=== PATIENT | female | born 1950 | race Two or more races ===

== ENCOUNTER → 2020-09-19 11:46 | Outpatient (CLI) | payer MEDICARE, SELFPAY ==
--- NOTE | ~2020-09-19 | MM_ITS ---
EXAMINATION: MM screening [facility] BI w laura HISTORY: Screening TECHNIQUE: Craniocaudal and mediolateral oblique 3-D tomosynthesis images were obtained and synthetic 2-D images were generated. CAD analysis was submitted and interpreted. COMPARISON: Comparison to multiple prior studies sequentially, with oldest reviewed study dated 05/2015. BREAST PARENCHYMAL COMPOSITION: The breasts are heterogeneously dense, which may obscure small masses . FINDINGS: Stable bilateral breast calcifications. There is no evidence of suspicious mass, calcificat ion, or architectural distortion to suggest malignancy in either breast. There has been no suspicious interval change. IMPRESSION: 1. No mammographic evidence of malignancy. 2. Recommend routine screening mammography in one year. BI-RADS Category 2: Benign finding(s). Reviewed, dictated and finalized at location A. 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
== END ==
PROVIDERS: PCP Internal Medicine; Visit Provider Internal Medicine Medical Oncology
DX: Z12.31 Encounter for screening mammogram for malignant neoplasm of breast (principal)
CPT/HCPCS: 77063; 77067

== ENCOUNTER 2021-01-26 13:57 | Outpatient (CLI) | payer MEDICARE, SELFPAY ==
--- NOTE | ~2021-01-26 | DEXA_ITS ---
Bone Density Report Name: Alicia Matthews Age: 70 Sex: Female Ethnicity: Date of : 1950 Indication: postmenopausal osteoporosis; parental hip fracture; height loss; prior fracture; cancer; Referring Provider: Naveed Moncada Study: Bone densitometry was performed. Exam Date: January 26, 2021 Accession number: [id number] Bone Density: Region BMD T-score Z-score Classification AP Spine (L2, L3, L4) 0.835 -2.2 0.1 Osteopenia Femoral Neck (Left) 0.694 -1.4 0.5 Osteopenia Total Hip (Left) 0.831 -0.9 0.7 Normal Total Hip Bilateral Avg 0.795 -1.2 0.4 Osteopenia Femoral Neck (Right) 0.653 -1.8 0.1 Osteopenia Total Hip (Right) 0.759 -1.5 0.1 Osteopenia World Health Organization criteria for BMD impression classify patients as: Normal (T-score at or above -1.0), Osteopenia (T-score between -1.0 and -2.5), or Osteoporosis (T-score at or below -2.5). 10-year Fracture Risk: FRAX not reported because: Prior hip or vertebral fracture Previous Exams: Region Exam Age BMD T-score BMD Change BMD Change Date g/cm2 vs Baseline vs Previous AP Spine(L2, L3, L4) 01/26/2021 70 0.835 -2.2 -0.059(-6.6%)# 0.036(4.5%)* 12/29/2018 68 0.799 -2.5 -0.095(-10.7%) -0.095(-10.7%) 11/07/2009 59 0.894 -1.7 Total Hip(Left) 01/26/2021 70 0.831 -0.9 -0.040(-4.5%)# 0.001(0.1%) 12/29/2018 68 0.829 -0.9 -0.041(-4.7%)# -0.041(-4.7%)# 11/07/2009 59 0.870 -0.6 Total Hip(Right) 01/26/2021 70 0.759 -1.5 -0.036(-4.5%)# 0.000(0.0%) 12/29/2018 68 0.759 -1.5 -0.036(-4.5%)# -0.036(-4.5%)# 11/07/2009 59 0.795 -1.2 *Denotes significance at 95% confidence level, LSC for AP Spine = 0.022 g/cm2, LSC for Total Hip = 0.027 g/cm2 Clinical Information Provided by Patient: Have had a previous hip or vertebral fracture Has had a low trauma fracture Parent has had a hip fracture Has used the following medications: Vitamin D Has the following medical conditions: Cancer Patient maximum height was 62 Menopause Age: 42 Drinks caffeinated beverages Onset of menses at age 12 Number of children 2 Impression: The patient has low bone mass, based on the Total Spine T-score. The patient has risk factors, including: parental hip fracture, previous fracture. No significant bone loss was observed. Discussion: INCREASED RISK OF FRACTURE DUE TO HISTORY OF FRACTURE. The patient's previous fracture puts the patient at high risk of a future fracture.
== END 2021-01-26 13:58 | disposition home or self-care (01) ==
LOC: ANHIMG 13:59
PROVIDERS: PCP Internal Medicine; Visit Provider Internal Medicine Medical Oncology
DX: M85.89 Other specified disorders of bone density and structure, multiple sites (principal)
CPT/HCPCS: 77080

== ENCOUNTER 2021-11-07 08:28 | Outpatient (CLI) | payer MEDICARE, SELFPAY ==
--- NOTE | ~2021-11-07 | MM_ITS ---
EXAMINATION: MM screening [facility] BI w laura HISTORY: Screening mammogram, history of left breast cancer TECHNIQUE: Craniocaudal and mediolateral oblique 3-D tomosynthesis images were obtained and synthetic 2-D images were generated. CAD analysis was submitted and interpreted. COMPARISON: 09/19/2020, 07/14/2019, 06/11/2018, 04/24/2017, 10/15/2016 BREAST PARENCHYMAL COMPOSITION: The breasts are heterogeneously dense, which may obscure small masses . FINDINGS: Stable lumpectomy changes are noted in the outer left breast. Scattered benign-appearing ca lcifications are present. There is no evidence of suspicious mass, calcification, or architectural di stortion to suggest malignancy in either breast. There has been no suspicious interval change. IMPRESSION: 1. No mammographic evidence of malignancy. 2. Recommend routine screening mammography in one year. BI-RADS Category 2: Benign finding(s). Reviewed, dictated and finalized at location A. 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
== END 2021-11-07 08:29 | disposition home or self-care (01) ==
LOC: ANHIMG 08:35
PROVIDERS: PCP Internal Medicine; Visit Provider Internal Medicine Medical Oncology
DX: Z12.31 Encounter for screening mammogram for malignant neoplasm of breast (principal)
CPT/HCPCS: 77063; 77067

== ENCOUNTER → 2022-02-21 16:28 | Outpatient (CLI) | payer MEDICARE, SELFPAY ==
--- NOTE | ~2022-02-21 | XR_ITS ---
XR lumbar spine 2-3V DATE: 02/21/2022 16:59 INDICATION: Lower back pain TECHNIQUE: AP, lateral, coned lateral lumbosacral standing views COMPARISON: 11/22/2019 lumbar spine FINDINGS: Chronic moderately prominent anterior wedge compression fracture deformity and vertebroplas ty at T12. Diffuse osteopenia. There is moderate to moderately severe degenerative disc disease at L1-2, L2-3, L3-4, mild degenerati ve disc disease at L4-5. Otherwise no fracture or bone destruction is evident. The lumbar pedicles are intact. The sacroiliac joints are intact. IMPRESSION: Diffuse osteopenia Chronic compression fracture deformity and vertebroplasty at T12 Multilevel degenerative disc disease Reviewed, dictated and finalized at location A.
--- NOTE | ~2022-02-21 | XR_ITS ---
XR thoracic spine 3V DATE: 02/21/2022 16:59 INDICATION: Upper back pain TECHNIQUE: AP, lateral and swimmer views COMPARISON: 11/22/2019 thoracic spine FINDINGS: There is diffuse osteopenia. Severe degenerative disc disease at the mid and lower cervical spine. There is vertebroplasty at moderately severe anterior wedge compression fracture deformity of T12 . There is mild degenerative spurring of the thoracic and lumbar spine. No paraspinal soft tissue thickening. IMPRESSION: Diffuse osteopenia Vertebroplasty at T12 compression fracture, stable since 11/22/2019 Degenerative spurring Prominent degenerative disc disease at mid and lower cervical spine Reviewed, dictated and finalized at location A.
== END ==
DX: M54.50 Low back pain, unspecified (principal); M85.88 Other specified disorders of bone density and structure, other site; M48.54XA Collapsed vertebra, not elsewhere classified, thoracic region, initial encounter for fracture; M51.36 Other intervertebral disc degeneration, lumbar region; Z98.1 Arthrodesis status; M50.320 Other cervical disc degeneration, mid-cervical region, unspecified level
CPT/HCPCS: 72072; 72100

== ENCOUNTER → 2022-08-06 11:59 | Outpatient (CLI) | payer MEDICARE, SELFPAY ==
--- NOTE | ~2022-08-06 | XR_ITS ---
XR hip LT min 2V DATE: 08/06/2022 12:45 INDICATION: Left hip pain TECHNIQUE: AP and lateral views COMPARISON: None FINDINGS: No fracture or dislocation, avascular necrosis or bone destruction. Left hip joint space is relatively well preserved. The pubic symphysis and sacral iliac joints are intact. IMPRESSION: No significant abnormality Reviewed, dictated and finalized at location B. IMPRESSION: No significant abnormality
== END ==
PROVIDERS: PCP Family Medicine; Visit Provider Family Medicine
DX: M25.552 Pain in left hip (principal)
CPT/HCPCS: 73502

== ENCOUNTER 2022-12-04 14:45 | Outpatient (CLI) | payer MEDICARE, SELFPAY ==
--- NOTE | ~2022-12-04 | MM_ITS ---
EXAMINATION: MM screening [facility] BI w laura HISTORY: Screening mammogram, history of left breast cancer TECHNIQUE: Craniocaudal and mediolateral oblique 3-D tomosynthesis images were obtained and synthetic 2-D images were generated. CAD analysis was submitted and interpreted. COMPARISON: 11/07/2021, 09/19/2020, 07/06/2019 BREAST PARENCHYMAL COMPOSITION: The breasts are heterogeneously dense, which may obscure small masses . FINDINGS: There are stable lumpectomy changes in the upper outer quadrant of the left breast. Also se en are stable right breast calcifications having undergone previous biopsy. There is stable architecture internship ural distortion No suspicious mass, calcification, or architectural distortion are identified in eith er breast to suggest malignancy. There has been no suspicious interval change. IMPRESSION: 1. No mammographic evidence of malignancy. 2. Recommend routine screening mammography in one year. BI-RADS Category 2: Benign finding(s). Reviewed, dictated and finalized at location A. 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
== END 2022-12-04 14:46 | disposition home or self-care (01) ==
LOC: ANHIMG 14:48
PROVIDERS: PCP Family Medicine; Visit Provider Internal Medicine Medical Oncology
DX: Z12.31 Encounter for screening mammogram for malignant neoplasm of breast (principal)
CPT/HCPCS: 77063; 77067

== ENCOUNTER 2023-07-01 15:35 | Outpatient (CLI) | payer MEDICARE, SELFPAY ==
[2023-07-01 20:47] LABS: Hemoglobin A1C 7.2 % (<5.7)
[2023-07-06 11:36] LABS: Thyroid Peroxidase Antibodies <1 IU/mL (<9)
== END 2023-07-01 15:36 | disposition home or self-care (01) ==
LOC: ANHGOSHLAB 15:38
PROVIDERS: Internal Medicine; PCP Family Medicine; Visit Provider Family Medicine
DX: E11.9 Type 2 diabetes mellitus without complications (principal); E03.9 Hypothyroidism, unspecified
CPT/HCPCS: 36415; 83036; 86376

== ENCOUNTER 2023-12-11 15:54 | Outpatient (CLI) | payer MEDICARE, SELFPAY ==
[2023-12-11 19:39] LABS: Magnesium 1.9 mg/dL (1.6-2.3)
[2023-12-11 19:41] LABS: Free T4 Free Thyroxine 1.47 ng/mL (0.78-2.19); Vitamin D 25 Hydroxy 84.8 ng/mL
== END 2023-12-11 15:55 | disposition home or self-care (01) ==
LOC: ANHGOSHLAB 15:55
PROVIDERS: PCP Family Medicine; Visit Provider Internal Medicine
DX: E03.9 Hypothyroidism, unspecified (principal); E11.22 Type 2 diabetes mellitus with diabetic chronic kidney disease; I12.9 Hypertensive chronic kidney disease with stage 1 through stage 4 chronic kidney disease, or unspecified chronic kidney disease; E53.8 Deficiency of other specified B group vitamins; Z98.890 Other specified postprocedural states; Z79.899 Other long term (current) drug therapy
CPT/HCPCS: 36415; 82306; 82607; 83036; 83735; 84439; 84443

== ENCOUNTER 2024-03-02 13:26 | Outpatient (CLI) | payer MEDICARE, SELFPAY ==
--- NOTE | ~2024-03-02 | MM_ITS ---
EXAMINATION: MM screening [facility] BI w laura HISTORY: Screening TECHNIQUE: Craniocaudal and mediolateral oblique 3-D tomosynthesis images were obtained and synthetic 2-D images were generated. CAD analysis was submitted and interpreted. COMPARISON: Comparison to multiple prior studies sequentially, with oldest reviewed study dated 01/2020. BREAST PARENCHYMAL COMPOSITION: Not dense: There are scattered areas of fibroglandular density. FINDINGS: The left breast is stable without evidence for malignancy. There are multiple clusters of i ndeterminate calcifications in the left breast. There are tissue markers adjacent to 2 of the cluster s one located centrally posterior to the nipple and the other in the upper outer quadrant. Reportedly there have been 2 prior benign biopsies. There is a cluster of indeterminate calcifications in the u pper outer quadrant of the right breast. IMPRESSION: 1. Multiple clusters of indeterminate right breast calcifications. 2. Magnification views are recommended. BI-RADS Category 0: Incomplete: Needs additional imaging evaluation. Reviewed, dictated and finalized at location B.
--- NOTE | ~2024-03-02 | DEXA_ITS ---
Bone Density Report Name: GEN PRUITT Age: 73 Sex: Female Ethnicity: Date of : 1950 Indication: osteopenia; parental hip fracture; height loss; prior fracture; postmenopausal Referring Provider: Coral, Naveed Moody Study: Bone densitometry was performed. Exam Date: March 02, 2024 Accession number: [id number] Bone Density: Region BMD T-score Z-score Classification AP Spine (L1-L4) 0.865 -1.7 0.7 Osteopenia Femoral Neck (Left) 0.699 -1.4 0.7 Osteopenia Total Hip (Left) 0.846 -0.8 1.0 Normal Femoral Neck (Right) 0.656 -1.7 0.3 Osteopenia Total Hip (Right) 0.768 -1.4 0.3 Osteopenia Total Hip Mean 0.807 -1.1 0.7 Osteopenia World Health Organization criteria for BMD impression classify patients as: Normal (T-score at or above -1.0), Osteopenia (T-score between -1.0 and -2.5), or Osteoporosis (T-score at or below -2.5). 10-year Fracture Risk: FRAX not reported because: Prior hip or vertebral fracture Previous Exams: Region Exam Age BMD T-score BMD Change BMD Change Date g/cm2 vs Baseline vs Previous AP Spine(L1-L4) 03/02/2024 73 0.865 -1.7 0.043* 0.043* 06/22/2008 58 0.822 -2.0 Total Hip(Left) 03/02/2024 73 0.846 -0.8 -0.027 -0.027 06/22/2008 58 0.873 -0.6 Total Hip(Right) 03/02/2024 73 0.768 -1.4 -0.039* -0.039* 06/22/2008 58 0.807 -1.1 *Denotes significance at 95% confidence level, LSC for AP Spine = 0.022 g/cm2, LSC for Total Hip = 0.027 g/cm2 Clinical Information Provided by Patient: Have had a previous hip or vertebral fracture Has had a low trauma fracture Parent has had a hip fracture Has used the following medications: Vitamin D Patient maximum height was 62.5 Menopause Age: 58 No regular weight bearing exercise Onset of menses at age 12 Number of children 2 Impression: The patient has low bone mass, based on the Total Spine T-score. The patient has risk factors, including: parental hip fracture, previous fracture. The BMD for the Total Hip(Right) decreased, changing by -0.039 since the last DXA exam. Discussion: INCREASED RISK OF FRACTURE DUE TO HISTORY OF FRACTURE. The patient's previous fracture puts the patient at high risk of a future fracture. In untreated patients, the risk of osteoporotic fracture increases approximately two-fold for each 1.0 SD decrease in T-score. Low bone density is not the only risk factor for fracture; also consider fac
== END 2024-03-02 13:27 ==
LOC: MICIMG 13:27
PROVIDERS: PCP Internal Medicine Medical Oncology; Visit Provider Internal Medicine Medical Oncology
DX: Z12.31 Encounter for screening mammogram for malignant neoplasm of breast (principal); M81.0 Age-related osteoporosis without current pathological fracture; M85.89 Other specified disorders of bone density and structure, multiple sites; C50.412 Malignant neoplasm of upper-outer quadrant of left female breast; R92.8 Other abnormal and inconclusive findings on diagnostic imaging of breast; Z17.0 Estrogen receptor positive status [ER+]
CPT/HCPCS: 77063; 77067; 77080

== ENCOUNTER 2024-03-12 15:56 | Outpatient (CLI) | payer MEDICARE, SELFPAY ==
--- NOTE | ~2024-03-12 | XR_ITS ---
EXAMINATION: XR knee RT min 4V, XR knee LT min 4V DATE: 03/12/2024 16:36 INDICATION: Bilateral knee pain, left greater than right TECHNIQUE: 1. Weight bearing anteroposterior and Veliz, sunrise, and flexed lateral views of the left knee w ere obtained 2. Weight bearing anteroposterior and Veliz, sunrise, and flexed lateral views of the right knee were obtained COMPARISON: None. FINDINGS: There is mild bilateral genu valgus. No fracture. There is mild joint space narrowing and small sherwin nal osteophytes in the medial and patellofemoral compartments of both knees. No joint effusion at eit her knee. Soft tissues are unremarkable. IMPRESSION: 1. Mild medial and patellofemoral osteoarthritis of both knees. Reviewed, dictated and finalized at location A. IMPRESSION: 1. Mild medial and patellofemoral osteoarthritis of both knees.
== END 2024-03-12 15:57 ==
PROVIDERS: PCP Family Medicine; Visit Provider Family Medicine
DX: M17.0 Bilateral primary osteoarthritis of knee (principal)
CPT/HCPCS: 73564

== ENCOUNTER 2024-04-26 15:30 | Outpatient (RCR) | payer MEDICARE, SELFPAY ==
--- NOTE | 2024-04-08 15:04 | PTOPEVAL1 ---
Assessment and note entered by Pete Lynn Evaluation Information Assessment Status Evaluation Diagnosis right knee pain, left knee pain Onset 01/09/24 Subjective Information Pt. reports that her knee pain began a few months ago. She notices pain mostly with going up and down steps. she states that squatting is not very painful. She describes pain in the front of both the right and left knee joint. She states that she has little pain with walking over a level surface. Pt. reports she is mostly sedentary, so pain is mild at rest. She reports that she avoids vigorous activities due to her developed pain. She has noticed that she has began to look for stable objects to hold onto when she is walking. She denies any recent falls, just feels she is more unsteady. She reports she does have some back pain also associated with long periods of standing. she has hx of previous kyphoplasty. She reports that her goal is to be able to become more steady and decrease her knee pain. Reported Pain Level Pain Score 0,6: Self Report Assessment PT Clinical Summary Pt. is a 73 year old female who enters the clinic with diagnosis of bilateral knee pain. Pt. presents with deficits regarding l.e. strength, back pain, impaired postural awareness, impaired gait and impaired balance. Continued skilled PT is indicated in order to improve these areas to allow the pt. to be able to participate in IADL's with improve comfort and efficiency. Plan of Care Interventions Gait Training,Hot Pack/Cold Pack,Manual Therapy, Neuro Re-education,Patient/Caregiver Educati, Therapeutic Activities,Therapeutic Exercise PT Services Indicated Yes Treatment Frequency and 2x/week x 10 visits Duration These treatments will address the objective and functional deficits as defined above. The patient will be advanced safely and appropriately in order for the patient to progress towards his/her prior level of function. Additional exercises will be introduced and as well as a comprehensive home exercise program upon discharge, if needed, ?to ensure carryover of functional gains achieved in the clinic. This treatment plan has been reviewed and agreement upon by the patient.
--- NOTE | 2024-04-08 15:08 | OPREHPOC ---
Outpatient Therapy Plan of Care This is a Multidisciplinary Plan of Care that may contain components documented by all disciplines (PT, OT, and ST.) PT Problem 1 PT Problem #1 Knowledge Deficit PT Goal 1 Goal Pt. will be independent with a HEP addressing trunk mobility, core strength and flexibility. Target Visit 2 PT Problem 2 PT Problem #2 Impaired Balance PT Goal 1 Goal Pt. will improve her tinetti score to 24 or greater indicating low to no fall risk. Target Visit 10 PT Problem 3 PT Problem #3 Impaired Functional Mobil PT Goal 1 Goal Pt. will be able to participate in 30 minutes of standing activities with back pain at 3/10 at worst Pt. will demonstrate ability to safely lift small object from floor to waist for 10 reps without pain increase. Pt. will ascend and descend 10 steps without noted knee pain. Target Visit 10 Progress Met PT Problem 4 PT Problem #4 Impaired Strength PT Goal 1 Goal Pt. will present with 4+/5 gross l.e. strength Target Visit 10
--- NOTE | 2024-05-13 12:00 | PCPTNOTE ---
Mrs. Matthews attended a total of 4 treatment sessions from 04/08/24 to 04/26/24. She contacted the clinic on 05/07/24 stating she had a lot going on right now and she needed to cancel all remaining appointments. She will be discharged from our care. Refer to the last daily note for discharge status. Pete Lynn, MPT
== END 2024-05-13 13:43 | disposition home or self-care (01) ==
LOC: ANHGOSHPT 15:30
PROVIDERS: PCP Family Medicine; Visit Provider Family Medicine
DX: M25.561 Pain in right knee (principal); M25.562 Pain in left knee
CPT/HCPCS: 97014; 97110; 97140; 97161; 97530; G0283

== ENCOUNTER 2024-06-02 09:49 | Outpatient (CLI) | payer MEDICARE, SELFPAY ==
--- NOTE | ~2024-06-02 | MM_ITS ---
EXAMINATION: MM diagnostic mammo unilat RT HISTORY: Follow-up right breast calcifications TECHNIQUE: Additional 3-D tomosynthesis images of the right breast were performed and synthetic 2-D i mages were generated. CAD analysis was submitted and interpreted. COMPARISON: Comparison to multiple prior studies sequentially, with oldest reviewed study dated 07/14. BREAST PARENCHYMAL COMPOSITION: Dense: The breasts are heterogeneously dense, which may obscure small masses FINDINGS: There is a tissue marker in the subareolar location of the right breast with adjacent clust ered pleomorphic calcifications which are not significantly changed dating back to 11/07/2021. There are 2 additional clusters of indeterminate calcifications in the upper outer quadrant which have deve loped since prior examinations. There are no suspicious masses or architectural distortion. IMPRESSION: 1. Developing clusters of indeterminate right breast calcifications in the upper outer quadrant. 2. Stereotactic biopsies of each of these clusters recommended. BI-RADS category 4, suspicious findings. Reviewed, dictated and finalized at location B. IMPRESSION: 1. Developing clusters of indeterminate right breast calcifications in the uppe r outer quadrant. 2. Stereotactic biopsies of each of these clusters recommended. BI-RADS category 4, suspicious findings.
== END 2024-06-02 09:50 ==
PROVIDERS: PCP Family Medicine; Visit Provider Internal Medicine Medical Oncology
DX: R92.8 Other abnormal and inconclusive findings on diagnostic imaging of breast (principal); Z85.3 Personal history of malignant neoplasm of breast
CPT/HCPCS: 77065

== ENCOUNTER 2024-06-16 10:47 | Outpatient (CLI) | payer MEDICARE, SELFPAY ==
[2024-06-16 13:24] LABS: Alanine Aminotransferase 16 U/L (6-35); Alkaline Phosphatase 77 U/L (38-126); Anion Gap 10 mmol/L (4-12); Aspartate Amino Transferase 30 U/L (14-36); Bilirubin,Total 0.3 mg/dL (0.2-1.3); Blood Urea Nitrogen 16 mg/dL (7-17); Calcium 9.6 mg/dL (8.4-10.2); Carbon Dioxide 24 mmol/L (22-30); Chloride 100 mmol/L (98-107); Cholesterol 208 mg/dL (0-200); Estimated Glomerular Filt Rate 54; Glucose 124 mg/dL (65-110); HDL Direct 46 mg/dL; Potassium 4.6 mmol/L (3.4-5.0); Sodium 134 mmol/L (137-145); Triglycerides 92 mg/dL (<150)
[2024-06-16 13:29] LABS: Parathyroid Intact 34.8 pg/mL (7.5-53.5)
[2024-06-16 13:35] LABS: LDL Cholesterol Direct 132 mg/dL
[2024-06-16 13:55] LABS: Creatinine Urine 26.6 mg/dL
[2024-06-16 14:03] LABS: MALB Creatinine Ratio < 22.6 mg/g (0-30); Microalbumin Urine Random < 6.0 mg/L (0-16.7)
[2024-06-16 14:22] LABS: Free T4 Free Thyroxine 1.84 ng/mL (0.78-2.19)
== END 2024-06-16 10:48 | disposition home or self-care (01) ==
PROVIDERS: PCP Family Medicine; Visit Provider Internal Medicine
DX: E03.9 Hypothyroidism, unspecified (principal); E11.22 Type 2 diabetes mellitus with diabetic chronic kidney disease; I12.9 Hypertensive chronic kidney disease with stage 1 through stage 4 chronic kidney disease, or unspecified chronic kidney disease; N18.9 Chronic kidney disease, unspecified; E11.3213 Type 2 diabetes mellitus with mild nonproliferative diabetic retinopathy with macular edema, bilateral; M85.80 Other specified disorders of bone density and structure, unspecified site; Z79.4 Long term (current) use of insulin
CPT/HCPCS: 36415; 80053; 80061; 82043; 82306; 82607; 83970; 84439; 84443

== ENCOUNTER 2024-07-01 09:01 | Outpatient (CLI) | payer MEDICARE, SELFPAY ==
--- NOTE | ~2024-07-01 | MM_ITS ---
MM stereotactic bx RT, MM post biopsy invasive RT, MM stereotactic specimen RT, MM stereotactic speci men RT, MM stereotactic bx RT add EXAMINATION: MM stereotactic bx RT, MM post biopsy invasive RT, MM stereotactic specimen RT, MM stere otactic specimen RT, MM stereotactic bx RT add DATE: Candido Kumar M.D. INDICATION: Multiple areas of indeterminate calcifications in the right breast. Stereotactic core bi opsy is requested evaluate for malignancy.] TECHNIQUE AND FINDINGS: The risks and potential benefits of the procedure were discussed with the patient and written informe d consent was obtained. The patient was placed in the prone position clustered at the table with the right breast in compression, and the area of interest was localized and targeted utilizing digital i maging with stereotaxis. 2 separate areas of indeterminate calcifications in the upper outer quadrant of the right breast, one located more anterior in the middle depth and the second located posteriorl y in the posterior third of the breasts. After sterile preparation of the skin, 1% lidocaine was utilized for local anesthesia at the skin pun cture site and 1% lidocaine with epinephrine was utilized for deeper local anesthesia/is about the bi opsy site. A 9G FANCRU vacuum assisted biopsy needle was advanced to the level of the calcification o f interest from a superior approach utilizing stereotactic guidance and a total of 6 tissue core biop sies from each cluster of calcifications were obtained. A specimen radiograph demonstrates that the calcifications of interest are included within the tissue cores. A tissue marker clip was then placed at the biopsy site. The needle was removed and hemosta sis was achieved. The patient tolerated the procedure well and there is no evidence of significant i mmediate complication. The patient was given verbal as well as written postprocedural instructions p rior to discharge from the department. Tissue cores were submitted to surgical pathology for histolo gic analysis. A 2-view right unilateral digital mammogram was obtained post procedure and this demonstrates that th e tissue marker clip is in expected position.] IMPRESSION: 1. Successful stereotactic biopsy of calcifications in the upper outer quadrant of the right breast, followed by tissue marker clip placement. 2 separate indeterminate clusters of calcifications in the upper outer quadrant of the right breast were sampled. 2 separate tissue markers were placed. Please refer to pathology report for histologic analysis. Reviewed, dictated and finalized at location B. IMPRESSION: 1. Successful stereotactic biopsy of calcifications in the upper outer quadran t of the right breast, followed by tissue marker clip placement. 2 separate ind eterminate clusters of calcifications in the upper outer quadrant of the right breast were sampled. 2 separate tissue markers were placed. Please refer to pat hology report for histologic analysis. IMPRESSION: 1. Successful stereotactic biopsy of calcifications in the upper outer quadran t of the right breast, followed by tissue marker clip placement. 2 separate ind eterminate clusters of calcifications in the upper outer quadrant of the right breast were sampled. 2 separate tissue markers were placed. Please refer to pat hology report for histologic analysis. IMPRESSION: 1. Successful stereotactic biopsy of calcifications in the upper outer quadran t of the right breast, followed by tissue marker clip placement. 2 separate ind eterminate clusters of calcifications in the upper outer quadrant of the right breast were sampled. 2 separate tissue markers were placed. Please refer to pat hology report for histologic terra
== END 2024-07-01 09:02 | disposition home or self-care (01) ==
PROVIDERS: PCP Family Medicine; Visit Provider Surgery
DX: R92.1 Mammographic calcification found on diagnostic imaging of breast (principal); R92.8 Other abnormal and inconclusive findings on diagnostic imaging of breast; Z98.890 Other specified postprocedural states
CPT/HCPCS: 19081; 19082; 88305; A4648

== ENCOUNTER 2024-12-03 13:13 | Outpatient (CLI) | payer MEDICARE, SELFPAY ==
[2024-12-03 18:06] LABS: Alanine Aminotransferase 21 U/L (6-35); Albumin Level 3.8 g/dL (3.5-5.1); Alkaline Phosphatase 89 U/L (38-126); Anion Gap 9 mmol/L (4-12); Aspartate Amino Transferase 36 U/L (14-36); Bilirubin,Total 0.5 mg/dL (0.2-1.3); Blood Urea Nitrogen 12 mg/dL (7-17); Calcium 9.6 mg/dL (8.4-10.2); Carbon Dioxide 22 mmol/L (22-30); Chloride 102 mmol/L (98-107); Cholesterol 196 mg/dL (0-200); Estimated Glomerular Filt Rate 57; Glucose 129 mg/dL (65-110); HDL Direct 44 mg/dL; Potassium 4.5 mmol/L (3.4-5.0); Sodium 133 mmol/L (137-145); Triglycerides 94 mg/dL (<150)
[2024-12-03 18:16] LABS: LDL Cholesterol Direct 121 mg/dL
[2024-12-03 18:55] LABS: Glucose 124 mg/dL (65-110)
[2024-12-07 13:54] LABS: Insulin Level Total 9.1 uIU/mL
== END 2024-12-03 13:14 | disposition home or self-care (01) ==
PROVIDERS: PCP Family Medicine; Visit Provider Internal Medicine
DX: E11.3213 Type 2 diabetes mellitus with mild nonproliferative diabetic retinopathy with macular edema, bilateral (principal); M85.80 Other specified disorders of bone density and structure, unspecified site; E03.9 Hypothyroidism, unspecified; I12.9 Hypertensive chronic kidney disease with stage 1 through stage 4 chronic kidney disease, or unspecified chronic kidney disease; E11.22 Type 2 diabetes mellitus with diabetic chronic kidney disease; N18.9 Chronic kidney disease, unspecified; E53.8 Deficiency of other specified B group vitamins; Z79.4 Long term (current) use of insulin
CPT/HCPCS: 36415; 80053; 80061; 82607; 82947; 83525

== ENCOUNTER 2025-01-18 14:02 | Emergency (ER) | payer OTHER, MEDICARE, SELFPAY ==
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
[2025-01-18 14:05] VITALS: BP 163/71; PULSE 60; RESP 16; TEMP 36.3; O2SAT 100
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
[2025-01-18 14:52] LABS: Basophils Absolute Auto 0.1 K/mm3 (0.0-0.1); Basophils Percent Auto 0.6 % (0.2-1.2); Eosinophils Absolute Auto 0.2 K/mm3 (0-0.3); Eosinophils Percent Auto 2.7 % (0-4.4); Hematocrit 40.2 % (37.0-47.0); Hemoglobin 13.1 g/dL (12.0-15.0); Immature Granulocyte Absolute 0.03 K/mm3 (0.00-0.031); Immature Granulocyte Percent A 0.4 % (0-0.5); Lymphocytes Absolute Auto 1.99 K/mm3 (0.9-3.2); Lymphocytes Percent Auto 23.2 % (18.3-44.2); Mean Corpuscular HGB Conc 32.6 g/dl (32-36); Mean Corpuscular Hemoglobin 28.7 pg (26-34); Mean Platelet Volume 10.6 fl (7.4-10.4); Monocytes Absolute Auto 0.7 K/mm3 (0.1-0.6); Monocytes Percent Auto 7.7 % (2.6-8.5); Neutrophils Absolute Auto 5.6 K/mm3 (1.3-6.7); Neutrophils Percent Auto 65.4 % (45.5-73.1); Platelet Count Result 300 k/mm3 (150-375); Red Blood Count 4.57 M/mm3 (4.2-5.4); Red Cell Distribution Width 13.6 % (11.5-14.5); White Blood Count 8.6 K/mm3 (4.5-10.0)
[2025-01-18 15:06] LABS: Alanine Aminotransferase 23 U/L (6-35); Albumin Level 4.5 g/dL (3.5-5.1); Alkaline Phosphatase 88 U/L (38-126); Anion Gap 12 mmol/L (4-12); Aspartate Amino Transferase 29 U/L (14-36); Bilirubin,Total 0.6 mg/dL (0.2-1.3); Blood Urea Nitrogen 16 mg/dL (7-17); Calcium 9.8 mg/dL (8.4-10.2); Carbon Dioxide 23 mmol/L (22-30); Chloride 101 mmol/L (98-107); Estimated Glomerular Filt Rate > 60; Glucose 138 mg/dL (65-110); Potassium 4.7 mmol/L (3.4-5.0); Sodium 136 mmol/L (137-145)
--- OUTSIDE RECORDS SUMMARY | 2025-01-18 16:27 | XMS_ITS | Continuity of Care Document ---
Author Organization [facility] Address [address] [place] [address] Phone Care Team Providers Care Kennel Manager Dog Track Name Role Phone Kimberly Mosher Unavailable Unavailable Procedures Procedure Date Eye Exam & Treatment Refraction Eye Exam & Treatment Refraction Eye Exam & Treatment Advance Directives Directive Yes / No Effective Date File Name No Information Encounters Encounter Description Practice Location Reason(s) For Visit Diagnoses Date Provider Providers Copied on Encounter [facility], [address] [place] [address] [address], [place], [place], [id number], tel:[phone] [facility] No Information Sep-1 5-200 9 Vidhi Rivas [address] , [address], [place], [place], [facility], . tel:[phone] [facility], [address] [place] [address] [address], [place], [place], [id number], [place] tel:[phone] [facility] No Information Sep-0 2-200 8 Vidhi Rivas [address] , [address], [place], [place], [facility], . tel:[phone] [facility], [address] [place] [address] [address], [place], [place], [id number], tel:[phone] [facility] No Information 8-200 7 Vidhi Ernstn. [address] , [address], [place], [address], [place]. tel:[phone] Family History Family Member Type Diagnosis Age At Onset No Information Payers Payer name Insurance type Covered libertarian ID Authoriza tion(s) No Information Social History Type Description Quantity Date Captured Comments Sex Female Smoking Status No Information Chief Complaint And Reason For Visit No Information Reason For Referral Reason For Referral No Information History Of Present Illness Encounter Date Complaint History Of Prese nt Illness No Information Functional Status Date Functional Assessmen t No Information Instructions Date Instruction Additional Infor mation No Information Assessments Type Assessment Date No Information Patient Care Teams Name Effective Dates (start - stop) Status Members No Information
--- OUTSIDE RECORDS SUMMARY | 2025-01-18 16:27 | XMS_ITS | Clinical Summary ---
Author Organization [facility] Address [address] [place] [address] Care Team Providers Care Sales Account Coordinator Name Role Phone Unavailable Primary Care Provider Unavailabl e Social History Tobacco Use Types Packs/Day Years Used Date Smoking Tobacco: Never Assessed Comments Unknown Sex and Gender Information Value Date Recorded Sex Assigned at Not on file Legal Sex Female 7:32 AM CDT Gender Identity Not on file Sexual Orientation Not on file Plan of Treatment Health Maintenance Due Date Last Done Comments Colorectal Cancer Screening Colonoscopy (10 Years) 1949 Hepatitis C 1967 DTaP, Tdap and Td Vaccines ( 1 - Tdap) 1968 Zoster Vaccines (1 of 2) 1999 Dexa Scan (General) 2014 Pneumococcal Vaccine: 65+ Ye ars (1 of 1 - PCV) 2014 RSV Immunization or 60+ Years (1 - 1-dose 75+ series) 2024 COVID-19 Vaccine ( - 2023-2 5 season) 2024 Influenza Adult (#1) 2024 Meningococcal B Vaccine Aged Out No l onger eligible based on patient's age to complete this topic Meningococcal Vaccine Aged Out No ami sanket eligible based on patient's age to complete this topic RSV Immunizations Under 20 Months Aged Out No longer eligible based on patient's age to complete this topic
--- OUTSIDE RECORDS SUMMARY | 2025-01-18 16:27 | XMS_ITS | Clinical Summary ---
Author Organization [facility] [address] Address [address] [place] [address] Care Team Providers Care Door Opener Name Role Phone Phill Duran MD Primary Care Provider Allergies Active Allergy Reactions Criticality Noted Date Comments Avocado Other (See Comments) High 10/29/2019 Scratchy throat Robledo Other (See Comments) High 10/29/2019 Scratchy itchy throat Egg Other (See Comments) High 10/29/2019 Scratchy throat Ghveryega-P-Aanebrk-Se pooja-Brom Other (See Comments) 11/04/2019 Allergic to pomegranate. Causes itchy scratchy throat Meperidine Other (See Comments) Low 06/28/2019 nausea Medications Ascorbic Acid (ACEROLA C-500) 500 mg Wafer 11/21/2017Vitam in c Powder (gram)POdailyCu rrent Medication 8 Active atorvastatin (LIPITOR) 20 mg tablet Take 20 mg by mouth daily with supper. 8 Active atorvastatin (LIPITOR) 20 mg tablet 9 Active blood sugar diagnostic (ONETOUCH ULTRA BLUE TEST STRIP) Strip TEST D UTD 8 Active cholecalciferol, vitamin D3, 1,000 unit Take 2,000 Units by mouth daily at bedtime. 8 Active furosemide (LASIX) 20 mg tablet Take 20 mg by mouth daily. 8 Active glimepiride (AMARYL) 2 mg tablet Take 2 mg by mouth 2 times daily with meals. 8 Active latanoprost (XALATAN) 0.005 % solution Administer 1 Drop in both eyes daily at bedtime. 9 Active levothyroxine 75 mcg tablet Take 75 mcg by mouth daily. 8 Active metFORMIN (GLUCOPHAGE) 500 mg tablet Take 1,000 mg by mouth 2 times daily with meals. 8 Active Sea-Murray 500-1,000 mg Capsule Take 1 Capsule by mouth late in the day. 8 Active potassium chloride (KLOR-CON) 10 mEq Extended Release tablet Take 10 mEq by mouth daily. 8 Active quinapril (ACCUPRIL) 5 mg tablet Take 10 mg by mouth late in the day. 8 Active SITagliptin (JANUVIA) 100 mg Tablet Take 100 mg by mouth daily. 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 Max Daily Amount: 4 Tablets 30 Tablet 11/04/2019 3:46 PM WORSHIP LEADER 9 Active Active Problems Problem Noted Date Diagnosed Date Closed wedge compression fracture of T11 vertebr a 10/29/2019 Immunizations Immunization Administration Dates Next Due Influenza Seasonal Unspecified Formulation IM Family History Medical History Relation Name Comments Heart Disease Brother Other Father accident No Known Problems Mother Diabetes Sister Hypertension Sister Relation Name Status Comments Brother Father Mother Sister Social History Tobacco Use Types Packs/Day Years Used Date Smoking Tobacco: Former Cigarettes Q uit: 2011 Smokeless Tobacco: Never Alcohol Use Standard Drinks/Week Comments Never 0 (1 standard drink = 0.6 oz pur e alcohol) Comments No Sex and Gender Information Value Date Recorded Sex Assigned at Not on file Legal Sex Female 4:05 AM WORSHIP LEADER Gender Identity Not on file Sexual Orientation Not on file Last Filed Vital Signs Vital Sign Reading Time Taken Comments Blood Pressure 178/72 11/04/2019 3:48 PM WORSHIP LEADER Pulse 58 11/04/2019 3:48 PM WORSHIP LEADER Temperature 36.4 C (97.5 F) 11/04/2019 3:48 PM WORSHIP LEADER Respiratory Rate 12 11/04/2019 3:48 PM WORSHIP LEADER Oxygen Saturation 95% 11/04/2019 3:48 PM WORSHIP LEADER Inhaled Oxygen Concentration - - Weight 66.2 kg (146 lb) 11/04/2019 12:14 PM WORSHIP LEADER Height 150.5 cm (4' 11.25 ) 11/04/2019 12:14 PM WORSHIP LEADER Body Mass Index 29.24 11/04/2019 12:14 PM WORSHIP LEADER Plan of Treatment Health Maintenance Due Date Last Done Comments DTAP/TDAP/TD VACCINES (1 - Tdap) 1968 COLORECTAL SCREENING 1994 Colorectal Cancer Screening 1994 FIT-DNA Q 3 years 1994 FIT/FOBT Q 1 year 1994 Flex Sig/CT Colonography Q 5 years 1994 PNEUMOCOCCAL VACCINE 50+ YEARS (1 of 1 - PCV) 06/04/19 99 ZOSTER VACCINE (1 of 2) 1999 OSTEOPOROSIS SCREENING 2014 RSV VACCINE (60+ or ) (1 - 1-dose 75+ series) 2024 INFLUENZA VACCINE (#1) 2024 08/29/2019 Medical Devices Implanted Type Area Ten Pin [place] Manager Device Identifier Shelf Expiration Date Model / Serial / Lot Mix Kyphon Cx01b - [id number] Implanted:Qty: 1 on 11/04/2019 by Tor Peterson MD at [facility] N/A: Back [employer] - SPINAL fka KYPHON 03/16/2022 CX01B / / [id number] Description:[id number], expires 03/16/2022 Cmnt Crtrdg Kyphon Balln Kyphoplasty Cc02a - Csc - [id number] Implanted:Qty: 1 on 11/04/2019 by Tor Peterson MD at [facility] N/A: Back [employer] - SPINAL fka KYPHON CC02A / / [id number] Cement Kyphon Gun Sz3 Cds3a - [id number] Implanted:Qty: 1 on 11/04/2019 by Tor Peterson MD at [facility] N/A: Back [employer] - SPINAL fka KYPHON CDS3A / / [id number] Advance Directives For more information, please contact: [phone] * Full Code (Latest Code Status on File) Date Activated Date Inactivated Comments 11/04/2019 12:56 PM 11/04/2019 7:43 PM Care Teams Door Opener Relationship Specialty Start Date End Date Phill Duran MD [address] [place] [id number] PCP - General Internal Medicine 10/25/19
--- OUTSIDE RECORDS SUMMARY | 2025-01-18 16:27 | XMS_ITS | Clinical Summary ---
Author Organization [facility] Address [address] [place] [address] Care Team Providers Care Photographer Motion Picture Name Role Phone Phill Duran MD Primary Care Provider [phone] Source Comments [facility],non-owned Affiliates and Associated Physician Practices is amultiple site organization consisting of ambulatory clinics and hospital sitesin [place], [place], [place] and [place]. This disclosure is being madepursuant to the Care Everywhere program and may not contain all information available regarding this patient. Last updated 18.[facility] Social History Tobacco Use Types Packs/Day Years Used Date Smoking Tobacco: Never Assessed Sex and Gender Information Value Date Recorded Sex Assigned at Not on file Gender Identity Not on file Sexual Orientation Not on file Plan of Treatment Health Maintenance Due Date Last Done Comments BONE DENSITY TESTING 1950 COLOGUARD (AGES 45-75) - COL ON CA SCREENING 1949 COLON MONITORING 1949 COLONOSCOPY - COLON CA SCREENING 1949 CT COLONOGRAPHY - COLON CA SCREENING 1949 Colorectal Cancer Screening 1949 FIT - COLON CA SCREENING 1949 FLEX SIG - COLON CA SCREENING 1949 LIPID TESTING 1949 MAMMOGRAM 1949 HEPATITIS C SCREENING 05/31/1967 DTAP/TDAP/TD VACCINES (1 - Tdap) 1968 PNEUMOCOCCAL VACCINE 50+ (1 of 1 - PCV) 1999 ZOSTER VACCINE (1 of 2) 1999 Respiratory Syncytial Virus (RSV) Vaccine Pt: or over 60 yrs (1 - 1-dose 75+ series) 2024 COVID-19 VACCINE (2023-2 5 season) 2024 INFLUENZA VACCINE (#1) 2024 DEPRESSION SCREENING 11/17/2024 MEDICARE AWV CALENDAR YEAR 2024 HEPATITIS B VACCINE Aged Out No longe r eligible based on patient's age to complete this topic HIB VACCINE Aged Out No longer eligi ble based on patient's age to complete this topic HPV VACCINE Aged Out No longer eligi ble based on patient's age to complete this topic MENINGOCOCCAL (Group B) VACCINE Aged Out No longer eligible based on patient's age to complete this topic MENINGOCOCCAL VACCINE Aged Out No ami sanket eligible based on patient's age to complete this topic Care Teams Photographer Motion Picture Relationship Specialty Start Date End Date Phill Duran MD [address] [place] [address] PCP - General Internal Medicine 09/05/16
--- OUTSIDE RECORDS SUMMARY | 2025-01-18 16:27 | XMS_ITS | Continuity of Care Document ---
Author Organization [facility] Address [address] [place] [address] Phone Care Team Providers Care Clinical Exercise Specialist Name Role Phone Jef PT, DPT, Dane Unavailable Unavailable Procedures Procedure Date Therapeutic Exercise Therapeutic Activities Neuromuscular Re-Ed Progress Note Therapeutic Exercise Therapeutic Activities Neuromuscular Re-Ed Therapeutic Exercise Therapeutic Activities Therapeutic Exercise Therapeutic Activities Neuromuscular Re-Ed Therapeutic Exercise Therapeutic Activities Therapeutic Exercise Therapeutic Activities Therapeutic Exercise Therapeutic Activities Therapeutic Exercise Therapeutic Activities Therapeutic Exercise Therapeutic Activities Neuromuscular Re-Ed Therapeutic Exercise Neuromuscular Re-Ed PT Evaluation Moderate Complexity Therapeutic Exercise Manual Therapy Advance Directives Directive Yes / No Effective Date File Name No Information Encounters Encounter Description Practice Location Reason(s) For Visit Diagnoses Date Provider Providers Copied on Encounter [facility], [address], [place], [place], [id number], [place] tel:[phone] [place] Unsp inj musc/tend the rotator cuff of r shoulder, subsPain in right shoulderOth symptoms and signs involving the musculoskeletal system 2 [address] . [facility], [place], [place], [address], [place] tel:[phone] [place] Unsp inj musc/tend the rotator cuff of r shoulder, subsPain in right shoulderOth symptoms and signs involving the musculoskeletal system 2 9 [address]. . [facility], [place], [place], [id number], [place] tel:[phone] [place] Unsp inj musc/tend the rotator cuff of r shoulder, subsPain in right shoulderOth symptoms and signs involving the musculoskeletal system 0 9 [address]. . [facility], [place], [place], [address], [place] tel:[phone] [place] Unsp inj musc/tend the rotator cuff of r shoulder, subsPain in right shoulderOth symptoms and signs involving the musculoskeletal system 0 9 Mak[address] Luke. . [facility], [place], [place], [id number], [place] tel:[phone] [place] Unsp inj musc/tend the rotator cuff of r shoulder, subsPain in right shoulderOth symptoms and signs involving the musculoskeletal system 0 9 [address] . [facility], [place], [place], [id number], [place] tel:[phone] [place] Unsp inj musc/tend the rotator cuff of r shoulder, subsPain in right shoulderOth symptoms and signs involving the musculoskeletal system 9 [address]. . [facility], [place], [place], [address], [place] tel:[phone] [place] Unsp inj musc/tend the rotator cuff of r shoulder, subsPain in right shoulderOth symptoms and signs involving the musculoskeletal system 9 [address]. . [facility], [place], [place], [id number], tel:[phone] [place] Unsp inj musc/tend the rotator cuff of r shoulder, subsPain in right shoulderOth symptoms and signs involving the musculoskeletal system 9 Mak[address] Luke. . [facility], [place], [place], [id number], tel:[phone] [place] Unsp inj musc/tend the rotator cuff of r shoulder, subsPain in right shoulderOth symptoms and signs involving the musculoskeletal system 9 Makler Luke. . [facility], [place], [place], [id number], tel:[phone] [place] Unsp inj musc/tend the rotator cuff of r shoulder, subsPain in right shoulderOth symptoms and signs involving the musculoskeletal system 9 Mak[address] Luke. . [facility], [place], [place], [address], tel:[phone] [place] Unsp inj musc/tend the rotator cuff of r shoulder, subsPain in right shoulderOth symptoms and signs involving the musculoskeletal system 9 Makler Luke. . Family History Family Member Type Diagnosis Age At Onset No Information Payers Payer name Insurance type Covered democrat ID Authorchung duff(s) [facility] [employer] [id number] Social History Type Description Quantity Date Captured [...]
--- OUTSIDE RECORDS SUMMARY | 2025-01-18 16:27 | XMS_ITS | Patient Health Summary ---
Author Organization [facility] Address [address] [place] [address] Care Team Providers Care Stock Dealer Name Role Phone Phill Duran MD Primary Care Provider [phone] Note from [facility],non-owned Affiliates and Associated Physician Practices is amultiple site organization consisting of ambulatory clinics and hospital sitesin [place], [place], [place] and [place]. This disclosure is being madepursuant to the Care Everywhere program and may not contain all information available regarding this patient. Last updated 18.[facility] Social History Tobacco Use Types Packs/Day Years Used Date Smoking Tobacco: Never Assessed Sex and Gender Information Value Date Recorded Sex Assigned at Not on file Gender Identity Not on file Sexual Orientation Not on file Care Teams Stock Dealer Relationship Specialty Start Date End Date Phill Duran MD [address] [place] [address] PCP - General Internal Medicine 09/05/16
--- OUTSIDE RECORDS SUMMARY | 2025-01-18 16:27 | XMS_ITS | Referral Summary ---
Author Organization [facility] Address [address] [place] [address] Care Team Providers Care Orthopedic Nurse Name Role Phone Phill Duran MD Primary Care Provider Source Comments [facility],non-owned Affiliates and Associated Physician Practices is amultiple site organization consisting of ambulatory clinics and hospital sitesin [place], [place], [place] and [place]. This disclosure is being madepursuant to the Care Everywhere program and may not contain all information available regarding this patient. Last updated 18.[facility] 20/[employer] Social History Tobacco Use Types Packs/Day Years Used Date Smoking Tobacco: Never Assessed Sex and Gender Information Value Date Recorded Sex Assigned at Not on file Gender Identity Not on file Sexual Orientation Not on file Plan of Treatment Not on file Care Teams Orthopedic Nurse Relationship Specialty Start Date End Date Phill Duran MD [address] [place] [address] PCP - General Internal Medicine 09/05/16
[2025-01-18] MEDS: LIDOCAINE 5% PATCH 1 PATCH TRANSDERM (16:51)
[2025-01-18 17:07] VITALS: BP 156/64; PULSE 60; RESP 18; O2SAT 98
== END 2025-01-18 17:09 | disposition home or self-care (01) ==
PROVIDERS: Emergency Provider Emergency Medicine; PCP Family Medicine
DX: S22.41XA Multiple fractures of ribs, right side, initial encounter for closed fracture (principal); D64.9 Anemia, unspecified; F41.9 Anxiety disorder, unspecified; E03.9 Hypothyroidism, unspecified; E11.9 Type 2 diabetes mellitus without complications; E78.5 Hyperlipidemia, unspecified; I10 Essential (primary) hypertension; Z85.3 Personal history of malignant neoplasm of breast; V43.62XA Car passenger injured in collision with other type car in traffic accident, initial encounter
CPT/HCPCS: 36415; 71260; 74177; 80053; 85025; 99284; A9270; Q9967

== ENCOUNTER 2025-03-17 12:55 | Outpatient (CLI) | payer MEDICARE, SELFPAY ==
--- NOTE | ~2025-03-17 | MM_ITS ---
EXAMINATION: MM diagnostic sydni BI w laura HISTORY: History of malignant neoplasm of the left breast. Previous right benign biopsies. TECHNIQUE: Additional 3-D tomosynthesis images of the breasts were performed and synthetic 2-D images were generated. CAD analysis was submitted and interpreted. COMPARISON: Comparison to multiple prior studies sequentially, with oldest reviewed study dated 07/14. BREAST PARENCHYMAL COMPOSITION: Not dense: There are scattered areas of fibroglandular density. FINDINGS: The breasts are stable. No new masses, calcifications or suspicious architectural distortio n in either breast to suggest malignancy. There are postbiopsy changes. Bilaterally. IMPRESSION: 1. No evidence for malignancy in either breast. 2. Routine yearly screening mammogram and regular clinical breast examination are recommended. BI-RADS Category 2: Benign finding(s). Reviewed, dictated and finalized at location A. IMPRESSION: 1. No evidence for malignancy in either breast. 2. Routine yearly screening mammogram and regular clinical breast examination a re recommended. BI-RADS Category 2: Benign finding(s).
--- OUTSIDE RECORDS SUMMARY | 2025-03-17 13:37 | XMS_ITS | Clinical Summary ---
Author Organization [facility] Address [address] [place] [address] Care Team Providers Care Construction Coordinator Name Role Phone Phill Duran MD Primary Care Provider [phone] Source Comments [facility],non-owned Affiliates and Associated Physician Practices is amultiple site organization consisting of ambulatory clinics and hospital sitesin [place], [place], [place] and [place]. This disclosure is being madepursuant to the Care Everywhere program and may not contain all information available regarding this patient. Last updated 18.[facility] Social History Tobacco Use Types Packs/Day Years Used Date Smoking Tobacco: Never Assessed Comments Unknown Sex and Gender Information Value Date Recorded Sex Assigned at Not on file Legal Sex Female 11:31 AM CDT Gender Identity Not on file [...] 2024 COVID-19 VACCINE (2023-2 5 season) 2024 DEPRESSION SCREENING 11/17/2024 MEDICARE AWV CALENDAR YEAR 2024 INFLUENZA VACCINE (Season Ended) 2025 HEPATITIS B VACCINE Aged Out No longe r eligible based on patient's age to complete this topic HIB VACCINE Aged Out No longer eligi ble based on patient's age to complete this topic HPV VACCINE Aged Out No longer eligi ble based on patient's age to complete this topic MENINGOCOCCAL (Group B) VACC INE SHARED DECISION-MAKING Aged Out No longer eligibl e based on patient's age to complete this topic MENINGOCOCCAL GROUPS A/C/Y/W VACCINE Aged Out No longer eligible b ased on patient's age to complete this topic [place] [place] [address] A[employer] MEDICARE ADV SELF PAY NO INSURANCE Member Subscriber Plan / Payer (Ef fective for All Dates) Name:Gen Pruitt Member ID:Not on file Relation to Subscriber:Not on file Name:GEN PRUITT Subscriber ID:Not on file (Home) Address: [address] [place] [address] [place] [address] Payer ID:Not on file Group ID:Not on file Type:Self Pay Address: [place], [place] Care Teams Construction Coordinator Relationship Specialty Start Date End Date Phill Duran MD [address] [place] [address] PCP - General Internal Medicine 09/05/16
--- OUTSIDE RECORDS SUMMARY | 2025-03-17 13:38 | XMS_ITS | Clinical Summary ---
Author Organization [facility] Address [address] [place] [address] Care Team Providers Care Early Interventionist Name Role Phone Phill Duran MD Primary Care Provider [phone] Allergies Active Allergy Reactions Criticality Noted Date Comments Avocado Other (See Comments) High 10/29/2019 Scratchy throat Robledo Other (See Comments) High 10/29/2019 Scratchy itchy throat Egg Other (See Comments) High 10/29/2019 Scratchy throat Vrruinviq-H-Qqeywpe-Se pooja-Brom Other (See Comments) 11/04/2019 Allergic to [...] 2 times daily with meals. 8 Active [place] 500-1,000 mg Capsule Take 1 Capsule by [...] 4 Tablets 30 Tablet 11/04/2019 3:46 PM PROCESS DESIGN CHEMICAL ENGINEER 9 Active Active Problems Problem Noted Date [...] on file Legal Sex Female 4:05 AM PROCESS DESIGN CHEMICAL ENGINEER Gender Identity Not on file Sexual Orientation Not on file Last Filed Vital Signs Vital Sign Reading Time Taken Comments Blood Pressure 178/72 11/04/2019 3:48 PM PROCESS DESIGN CHEMICAL ENGINEER Pulse 58 11/04/2019 3:48 PM PROCESS DESIGN CHEMICAL ENGINEER Temperature 36.4 C (97.5 F) 11/04/2019 3:48 PM PROCESS DESIGN CHEMICAL ENGINEER Respiratory Rate 12 11/04/2019 3:48 PM PROCESS DESIGN CHEMICAL ENGINEER Oxygen Saturation 95% 11/04/2019 3:48 PM PROCESS DESIGN CHEMICAL ENGINEER Inhaled Oxygen Concentration - - Weight 66.2 kg (146 lb) 11/04/2019 12:14 PM PROCESS DESIGN CHEMICAL ENGINEER Height 150.5 cm (4' 11.25 ) 11/04/2019 12:14 PM PROCESS DESIGN CHEMICAL ENGINEER Body Mass Index 29.24 11/04/2019 12:14 PM PROCESS DESIGN CHEMICAL ENGINEER Plan of Treatment Health Maintenance Due Date [...] 2024 08/29/2019 Medical Devices Implanted Type Area Cylinder Press Feeder Device Identifier Shelf Expiration Date Model / Serial / Lot Mix Kyphon Cx01b - [id number] Implanted:Qty: 1 on 11/04/2019 by oTr Peterson MD at [facility] N/A: Back [employer] - SPINAL fka KYPHON 03/16/2022 CX01B / / [id number] Description:cx01A [id number], expires 03/16/2022 Cmnt Crtrdg Kyphon Balln Kyphoplasty Cc02a - Csc - [id number] Implanted:Qty: 1 on 11/04/2019 by Tor Peterson MD at [facility] N/A: Back [employer] - SPINAL fka KYPHON CC02A / / [id number] Cement Kyphon Gun Sz3 Cds3a - [id number] Implanted:Qty: 1 on 11/04/2019 by Tor Peterson MD at [facility] N/A: Back [employer] - SPINAL fka KYPHON CDS3A / / [id number] Advance Directives For more information, please contact: [phone] * Full Code (Latest Code Status on File) Date Activated Date Inactivated Comments 11/04/2019 12:56 PM 11/04/2019 7:43 PM Care Teams Early Interventionist Relationship Specialty Start Date End Date Phill Duran MD [address] [place] [phone] PCP - General Internal Medicine 10/25/19
--- OUTSIDE RECORDS SUMMARY | 2025-03-17 13:38 | XMS_ITS | Clinical Summary ---
Author Organization [facility] Address [address] [place] [address] Care Team Providers Care Manager Metal Name Role Phone Serafin Miramontes MD Unavailable [phone] Arnulfo Dang DO Primary Care Provider [phone] Naveed Moncada DO Unavailable [phone] Allergies Active Allergy Reactions Criticality Noted Date Comments Avocado Other (See comments) High 10/29/2019 Scratchy throat Robledo Other (See comments) High 10/29/2019 Scratchy itchy throat Meperidine Nausea only Low 06/28/2019 Egg Other (See comments) High 10/29/2019 Scratchy throat Nptwhhofq-N-Lmetkts-Se pooja-Brom Other (See comments) Low 11/04/2019 Allergic to pomegranate. Causes itchy scratchy throat Medications glimepiride (AMARYL) 1 mg tabletIndicat ions:type 2 diabetes mellitus 1 tablet (1 mg total) 18 Active metFORMIN (GLUCOPHAGE) 500 mg tablet Take 1 tablet (500 mg total) by mouth 2 (two) times a day with meals 11/21/19 18 Active furosemide (LASIX) 40 mg tablet 11/21/2017Lasix, po solid 40 mg TabletPOas directedCurrent Medication 11/21/19 18 Active levothyroxine (SYNTHROID, LEVOTHROID) 75 mcg tablet 11/21/2017Levothyroxine sodium, po solid 75 mcg TabletPOdailyCurrent Medication 11/21/19 18 Active atorvastatin (LIPITOR) 20 mg tablet 04/16/20 18 Active cholecalcifer ol (VITAMIN D-3) 2000 unit capsule Active latanoprost (XALATAN) 0.005 % ophthalmic solution 09/25/20 21 Active lisinopriL (PRINIVIL,ZES TRIL) 10 mg tablet Take 1 tablet (10 mg total) by mouth daily 07/23/20 23 Active vitamin K2 40 mcg tablet Take by mouth Activ e cyanocobalami n, vitamin B-12, (VITAMIN B-12 ORAL) Take by mouth Active coenzyme Q10 100 mg capsule Take 1 capsule (100 mg total) by mouth daily Act hannah meclizine (ANTIVERT) 25 mg tablet Take 1 tablet (25 mg total) by mouth 3 (three) times a day as needed for dizziness (ringing in ears) 30 tablet 2 09/26/20 23 Active Additional Information Patient not taking.Reported on 09/24/2024 OneTouch Verio test strips strip USE 1 TEST STRIP TO CHECK FASTING GLUCOSE DAILY 09/09/20 24 Active Active Problems Problem Noted Date Diagnosed Date Malignant neoplasm of upper- outer quadrant of breast in female, estrogen receptor positive 05/29/2018 Cancer Staging:Clinical stage from 03/12/2010:Stage IIB(cT2, cN0, cM0, G3, ER: Positive, IA: Negative, HER2: Negative) - Signed by Naveed Moncada DO on 05/29/2018 Hypothyroidism 04/02/2014 Overview (02/19/2017): HYPOTHYROIDISM NOS Nontoxic uninodular goiter 04/02/2014 Overview (02/20/2017): NONTOX UNINODULAR GOITER Type 2 diabetes mellitus 04/02/2014 Overview (02/21/2017): DMII WO CMP UNCNTRLD Encounters Date Type Department Care Team Description 03/09/2025 Telephone [facility] [address] [place] [address] [address] [place] [address] Anisha Moreno CMA 03/03/2025 Orders Only [facility] [address] [place] [address] [address] [place] [address] Breanna Mcdowell, RN Malignant neoplasm of upper-outer quadrant of left breast in female, estrogen receptor positive (HCC) (Primary Dx) from Last 3 Months Immunizations Immunization Administration Dates Next Due Influenza, Quad, Adjuvantate d, Intramuscular 08/10/2022,07/31/2020 Influenza, Trivalent, High D ose, Split, Preservative Free, Intramuscular 10/21/2018,08/03/2017,09/04/2016 Influenza, Trivalent, IM (MDV) 08/29/2019 Influenza, Unspecified 08/31/2021 Pneumococcal Conjugate Pcv20 08/22/2022 Pneumococcal Polysaccharide PPV23 09/04/2016 ZOSTER LIVE 11/21/2017 ZOSTER Recombinant 12/17/2019 Surgical History Surgery Date Site/Laterality Comments CHOLECYSTECTOMY 1986 Cholecystectomy Medical History Medical History Date Comments Type 2 diabetes mellitus (HCC) D iabetes type 2 Malignant neoplasm of male breast (HCC) Cancer, breast Family History Medical History Relation Name Comments Diabetes type II Other Family hist ory of Diabetes -Type 2; Relation Name Status Comments Other Social History Tobacco Use Types Packs/Day Years Used Date Smoking Tobacco: Never Smokeless Tobacco: Never Alcohol Use Standard Drinks/Week Comments No 0 (1 standard drink = 0.6 oz pur e alcohol) AUDIT-C Answer Date Recorded Q1: How often do you have a drink containing alcohol? Never 09/24/2024 Q2: How many drinks containi ng alcohol do you have on a typical day when you are drinking? Patient does not drink Q3: How often do you have si x or more drinks on one occasion? Never 09/24/2024 Comments Unknown Sex and Gender Information Value Date Recorded Sex Assigned at Not on file Legal Sex Female 7:36 PM PERSONAL CAREGIVER Gender Identity Female 09/29/2022 6:19 PM PERSONAL CAREGIVER Sexual Orientation Not on file Obstetrics History Last Filed Vital Signs Vital Sign Reading Time Taken Comments Blood Pressure 160/71 09/24/2024 3:02 PM PERSONAL CAREGIVER Pulse 52 09/24/2024 3:02 PM PERSONAL CAREGIVER Temperature 36.6 C (97.8 F) 09/24/2024 3:02 PM PERSONAL CAREGIVER Respiratory Rate 18 09/24/2024 3:02 PM PERSONAL CAREGIVER Oxygen Saturation 99% 09/24/2024 3:02 PM PERSONAL CAREGIVER Inhaled Oxygen Concentration - - Weight 62 kg (136 lb 11 oz) 09/24/2024 3:[address] Height 152.4 cm (5') 09/26/2023 11:40 AM PERSONAL CAREGIVER Body Mass Index 26.69 09/26/2023 11:40 AM PERSONAL CAREGIVER Plan of Treatment Health Maintenance Due Date Last Done Comments Albumin Creatinine Ratio, Urine 1949 Colon Cancer Screening-Colonoscopy 1949 Depression Screening 1949 Fall Risk Assessment 1950 Hepatitis C Screening 1949 Osteoporosis Screening-Bone Density Scan 1949 Dilated Eye Exam 1949 Foot Exam 1949 DTaP/Tdap/Td Vaccine (1 - Tdap) 1960 Hepatitis B Screening 1967 Well Visit 65+ 2014 Zoster Vaccine (3 of 3) 02/11/2020 12/17/2019, 11/21 Lipid Panel 02/27/2024 02/26/2023 eGFR 02/27/2024 02/26/2023, 09/27/2022 Hemoglobin A1C 04/23/2024 10/23/2023, 02/26/2023 Covid-19 Vaccine (2023-2 5 season) 2024 08/10/2022, 02/23/2022, 08/21/2021, Additional history exists Influenza Vaccine (Season Ended) 2025 08/10/2022, 08/31/2021, 07/31/2020, Additional history exists Pneumococcal vaccine 65+ Completed 08/22/2022, 08/17 Breast Cancer Screening-Mammogram Discontinued 023 Procedures Procedure Name Priority Date/Time Associated Diagnosis Comments HEMOGLOBIN A1C Routine 10/23/2023 3:12 PM PERSONAL CAREGIVER B12 deficiency Type 2 diabetes mellitus with diabetic chronic kidney disease (HCC) Hypothyroidism EGFR Routine 02/26/2023 9:41 AM CDT Hyperlipidemia, unspecified hyperlipidemia type LIPID PANEL Routine 02/26/2023 9:41 AM CDT Hyperlipidemia, unspecified hyperlipidemia type SCREENING MAMMOGRAM BILATERAL W SONNY Schedule Routine, Read Routine (OP Routine) 12/04/2022 Malignant neoplasm of upper-outer quadrant of left breast in female, estrogen receptor positive (HCC) from Last 3 Months or Most Recently Relevant to Health Maintenance Results * (ABNORMAL) Hemoglobin A1c (10/23/2023 3:12 PM PERSONAL CAREGIVER) Hgb A1C 7.6(H) 4.0 - 5.6 % SOPHY SANDOVAL Estimated Average Glucose 171 mg/dL SOPHY SANDOVAL Comment: The ADA recommends reporting an estimated Average Glucose (eAG) with all Hemoglobin A1c results using the equation derived from a study of 507 normal and diabetic adults. Minority populations were underrepresented and children were not included. (Diabetes Care 31:2471-7745, 2008). The eAG is not equivalent to a fasting glucose. Blood Venous blood specimen / Unknown 10/23/2023 3:12 PM PERSONAL CAREGIVER 10/23/2023 8:31 PM PERSONAL CAREGIVER Narrative SOPHY SANDOVAL - 10/23/2023 9:30 PM PERSONAL CAREGIVER FAX RESULTS TO [phone] CRISTHIAN SIFUENTES Jose Justice MD LAB BLOOD ORDERABLES Final R esult SOPHY SANDOVAL [address] [place] [address] * eGFR (02/26/2023 9:41 AM CDT) eGFR 65 mL/min/1. 73 m2 SOPHY SANDOVAL Comment: Interpretive Data Reference Interval Normal >/= 90 mL/min/1.73m2 Mildly decreased* 60 - 89 mL/min/1.73m2 Mildly to moderately decreased 45 - 59 mL/min/1.73m2 Moderately to severely decreased 30 - 44 mL/min/1.73m2 Severely decreased 15 - 29 mL/min/1.73m2 Kidney Failure < 15 mL/min/1.73m2 *Relative to young adult level Estimated glomerular filtration rate is determined by the 2020 CKD-EPI equation recommended by the National Kidney Foundation (A Unifying Approach to GFR Estimation: Recommendations of the NKF-ASK Task Force on Reassessing the Inclusion of Race in Diagnosing Kidney Disease, JASN 2020). The CKD-EPI equation should not be used for patients with unstable renal function and has not been validated in children and those over 70. Current interpretive data was last reviewed 2021. Blood 02/26/2023 9:41 AM CDT 02/26/2023 5:32 PM CDT Arnulfo Dang DO LAB BLOOD ORDERABLES Final Resul t SOPHY SANDOVAL [address] [address] Department of Laboratories [place], [place] [id number] * Lipid panel (02/26/2023 9:41 AM CDT) Cholesterol 128 30 - 199 mg/dL SOPHY SANDOVAL Comment: Interpretive Data Ages < or = 19 years Acceptable: <170 mg/dL Borderline high: 170-199 mg/dL High: >or= 200 mg/dL Ages > or = 20 years Desirable: <200 mg/dL Borderline high: 200-239 mg/dL High: >or= 240 mg/dL Literature References: 1. Expert Panel on Integrated Guidelines for Cardiovascular Health and Risk Reduction in Children and Adolescents. Pediatrics 2011;128:S213 2. NCEP Expert Panel. Circulation 2004;110:227 Current Interpretive Data was last revised on 2018. Triglycerides 74 <=149 mg/dL SOPHY SANDOVAL Comment: Interpretive Data Ages < or = 9 years Acceptable: <75 mg/dL Borderline high: 75-99 mg/dL High: >or= 100 mg/dL Ages 10 to 20 years Acceptable: <90 mg/dL Borderline high: 90-129 mg/dL High: >or= 130 mg/dL Ages > or = 20 years Desirable: <150 mg/dL Borderline high: 150-199 mg/dL High: 200-499 mg/dL Very high: >or= 499 mg/dL Literature References: 1. Expert Panel on Integrated Guidelines for Cardiovascular Health and Risk Reduction in Children and Adolescents. Pediatrics 2011;128:S213 2. NCEP Expert Panel. Circulation 2004;110:227 Current Interpretive Data was last revised on 2018. HDL 42 >=40 mg/dL SOPHY SANDOVAL Comment: Interpretive Data Ages < or = 19 years Acceptable: >45 mg/dL Borderline low: 40-45 mg/dL Low: <40 mg/dL Ages > or = 20 years Desirable: >or= 60 mg/dL Low: <40 mg/dL Literature References: 1. Expert Panel on Integrated Guidelines for Cardiovascular Health and Risk Reduction in Children and Adolescents. Pediatrics 2011;128:S213 2. NCEP Expert Panel. Circulation 2004;110:227 Current Interpretive Data was last revised on 2018. LDL, calculated 71 <=129 mg/dL SOPHY SANDOVAL Comment: Interpretive Data Ages < or = 19 years Acceptable: <110 mg/dL Borderline high: 110-129 mg/dL High: >or= 130 mg/dL Ages > or = 20 years Optimal: <100 mg/dL Near optimal: 100-129 mg/dL Borderline high: 130-159 mg/dL High: >160 mg/dL Literature References: 1. Expert Panel on Integrated Guidelines for Cardiovascular Health and Risk Reduction in Children and Adolescents. Pediatrics 2011;128:S213 2. NCEP Expert Panel. Circulation 2004;110:227 Current Interpretive Data was last revised on 2018. Non-HDL Cholesterol 86 mg/dL SOPHY Comment: Interpretive Data Ages < or = 19 years Acceptable: <120 mg/dL Borderline high: 120-144 mg/dL High: >145 mg/dL Ages > or = 20 years When triglycerides are >200 mg/dL, Non-HDL cholesterol is a secondary target of therapy with treatment goals that are 30 mg/dL greater than the LDL cholesterol target. Literature References: 1. Expert Panel on Integrated Guidelines for Cardiovascular Health and Risk Reduction in Children and Adolescents. Pediatrics 2011;128:S213 2. NCEP Expert Panel. Circulation 2004;110:227 Current Interpretive Data was last revised on 2018. Chol/HDL ratio 3 SOPHY Blood Venous blood specimen / Unknown 02/26/2023 9:41 AM CDT 02/26/2023 5:19 PM CDT Narrative SOPHY - 02/26/2023 6:11 PM CDT FAX RESULTS TO ARNULFO COLLADO [phone] Arnulfo Dang DO LAB BLOOD ORDERABLES Final Resul t SOPHY [address] [place] [address] * Screening Mammogram Bilateral W Sonny (12/04/2022) Anatomical Region Laterality Modality Breast Bilateral Mammography Naveed Moncada DO IMG MAMMO PROCEDURES Final R esult from Last 3 Months or Most Recently Relevant to Health Maintenance Insurance A[employer] MEDICARE [place] [address] [employer] MEDICARE Care Teams Manager Metal Relationship Specialty Start Date End Date Arnulfo Dang DO [address] [facility] [address] [place] [address] PCP - General Family Medicine 09/11/22 Serafin Miramontes MD [address] [facility] [address] [place] [address] Consulting Physician Vascular Surgery 05/25/18 Naveed Moncada DO [address] [place] [address] MEDICAL ONCOLOGY, [facility] [address] [place], [place] [id number] Medical Oncologist/Position Clerk Hematology and Oncology 09/23/23
--- OUTSIDE RECORDS SUMMARY | 2025-03-17 13:38 | XMS_ITS | Referral Summary ---
Author Organization [facility] Address [address] [place] [address] Care Team Providers Care Cuff Folder Name Role Phone Serafin Miramontes MD Unavailable [phone] Arnulfo Dnag DO Primary Care Provider [phone] Naveed Moncada DO Unavailable [phone] Encounters Date Type Department Care Team Description 03/09/2025 Telephone [facility] Oncology [facility] [facility] [address] [place] [address] Anisha Moreno CMA 03/03/2025 Orders Only [facility] Oncology [address] [facility] [address] [place] [address] Breanna Mcdowell, RN Malignant neoplasm of upper-outer quadrant of left breast in female, estrogen receptor positive (HCC) (Primary Dx) from Last 3 Months Allergies Active Allergy Reactions Criticality Noted Date Comments Avocado Other (See comments) High 10/29/2019 Scratchy throat Robledo Other (See comments) High 10/29/2019 Scratchy itchy throat Meperidine Nausea only Low 06/28/2019 Egg Other (See comments) High 10/29/2019 Scratchy throat Mtxasmfyf-K-Jpcdflh-Se pooja-Brom Other (See comments) Low 11/04/2019 Allergic [...] 03/12/2010:Stage IIB(cT2, cN0, cM0, G3, ER: Positive, NC: Negative, HER2: Negative) - Signed by Naveed Moncada DO on 05/29/2018 Hypothyroidism 04/02/2014 Overview (02/19/2017): HYPOTHYROIDISM NOS Nontoxic uninodular goiter 04/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 Overview (02/20/2017): NONTOX UNINODULAR GOITER Type 2 diabetes mellitus 04/02/2014 Overview (02/21/2017): DMII WO CMP UNCNTRLD Immunizations Immunization Administration Dates Next Due Influenza, Quad, Adjuvantate d, Intramuscular 08/10/2022,07/31/2020 Influenza, Trivalent, High D ose, Split, Preservative Free, Intramuscular 10/21/2018,08/03/2017,09/04/2016 Influenza, Trivalent, IM (MDV) 08/29/2019 Influenza, Unspecified 08/31/2021 Pneumococcal Conjugate Pcv20 08/22/2022 Pneumococcal Polysaccharide PPV23 09/04/2016 ZOSTER LIVE 11/21/2017 ZOSTER Recombinant 12/17/2019 Social History Tobacco Use Types Packs/Day Years [...] on file Legal Sex Female 7:36 PM STRIPPER PRELIMINARY Gender Identity Female 09/29/2022 6:19 PM STRIPPER PRELIMINARY Sexual Orientation Not on file Last Filed Vital Signs Vital Sign Reading Time Taken Comments Blood Pressure 160/71 09/24/2024 3:02 PM STRIPPER [employer]LIMINARY Pulse 52 09/24/2024 3:02 PM [employer]IP[employer]IN[employer] Temperature 36.6 C (97.8 F) 09/24/2024 3:02 PM [employer]IPPER [employer]LIMINARY Respiratory Rate 18 09/24/2024 3:02 PM STRIPPER PRELIMINARY Oxygen Saturation 99% 09/24/2024 3:02 PM STRIPPER PRELIMINARY Inhaled Oxygen Concentration - - Weight 62 kg (136 lb 11 oz) 09/24/2024 3:[address] Height 152.4 cm (5') 09/26/2023 11:40 AM STRIPPER PRELIMINARY Body Mass Index 26.69 09/26/2023 11:40 AM STRIPPER PRELIMINARY Plan of Treatment Not on file Procedures Procedure Name Priority Date/Time Associated Diagnosis Comments HEMOGLOBIN A1C Routine 10/23/2023 3:12 PM STRIPPER PRELIMINARY B12 deficiency Type 2 diabetes mellitus with [...] * (ABNORMAL) Hemoglobin A1c (10/23/2023 3:12 PM STRIPPER PRELIMINARY) Hgb A1C 7.6(H) 4.0 - 5.6 % SOPHY SANDOVAL Estimated Average Glucose 171 mg/dL SOPHY SANDOVAL Comment: The ADA recommends reporting an estimated Average Glucose (eAG) with all Hemoglobin A1c results using the equation derived from a study of 507 normal and diabetic adults. Minority populations were underrepresented and children were not included. (Diabetes Care 31:8230-8127, 2008). The eAG is not equivalent to a fasting glucose. Blood Venous blood specimen / Unknown 10/23/2023 3:12 PM STRIPPER PRELIMINARY 10/23/2023 8:31 PM STRIPPER PRELIMINARY Narrative SOPHY SANDOVAL - 10/23/2023 9:30 PM STRIPPER PRELIMINARY FAX RESULTS TO [phone] CRISTHIAN SIFUENTES us Jose Justice MD LAB BLOOD ORDERABLES Final R esult SOPHY SANDOVAL [address] Department [place] [address] * eGFR (02/26/2023 9:41 AM CDT) eGFR [...] BLOOD ORDERABLES Final Resul t SOPHY SANDOVAL [address] Department of Laboratories [place], [place] [id number] * Lipid panel (02/26/2023 9:41 AM CDT) [...] on 2018. HDL 42 >=40 mg/dL SOPHY Comment: Interpretive Data Ages < [...] 2018. LDL, calculated 71 <=129 mg/dL SOPHY Comment: Interpretive Data Ages < [...] on 2018. Non-HDL Cholesterol 86 mg/dL SOPHY SANDOVAL Comment: Interpretive Data Ages [...] revised on 2018. Chol/HDL ratio 3 SOPHY SANDOVAL Blood Venous blood specimen / Unknown 02/26/2023 9:41 AM CDT 02/26/2023 5:19 PM CDT Narrative SOPHY CH - 02/26/2023 6:11 PM CDT FAX RESULTS TO ARNULFO COLLADO [phone] us Arnulfo Dang DO LAB BLOOD ORDERABLES Final Resul t SOPHY SANDOVAL [address] Department [place] [address] * Screening Mammogram Bilateral W Sonny (12/04/2022) Anatomical Region Laterality Modality Breast Bilateral Mammography us Naveed Moncada DO IMG MAMMO PROCEDURES Final R esult from Last 3 Months or Most Recently Relevant to Health Maintenance Insurance [employer] MEDICARE [place] [address] [facility] MEDICARE Care Teams Cuff Folder Relationship Specialty Start Date End Date Arnulfo Dang DO [address] [facility] [address] [place], [place] [id number] PCP - General Family Medicine 09/11/22 Serafin Miramontes MD [address] [facility] [address] [place] [address] Consulting Physician Vascular Surgery 05/25/18 Naveed Moncada DO [address] [place] [address] MEDICAL ONCOLOGY, [facility] [address] [place] [address] Medical Oncologist/Inspecting Machine Adjuster Hematology and Oncology 09/23/23
--- OUTSIDE RECORDS SUMMARY | 2025-03-17 13:40 | XMS_ITS | Encounter Summary ---
Author Organization [facility] Address [address] [place] [address] Phone Care Team Providers Care Insurance Consultant Name Role Phone Serafin Miramontes MD Unavailable [phone] Arnulfo Dang DO Primary Care Provider [phone] Naveed Moncada DO Unavailable [phone] Encounter Details Date Type Department Care Team (Late st Contact Info) Description 03/09/2025 Telephone [facility] Oncology [facility] [address] [place] [address] Anisha Moreno CMA Social History Tobacco Use Types Packs/Day Years [...] on file Legal Sex Female 7:36 PM SHERIFFS DETECTIVE Gender Identity Female 09/29/2022 6:19 PM SHERIFFS DETECTIVE Sexual Orientation Not on file documented as of this encounter Miscellaneous Notes * Telephone Encounter - Anisha Moreno CMA - 03/14/2025 3:18 PM CDT Patient returned call to office; informed her of message from Dr Moncada explaining the reason fordiagnostic mammogram bilateral; she states she wanted to make sure it is Dr Moncada who ordered the diagnostic mammograms * Telephone Encounter - Tonya Thomas RN - 03/09/2025 3:[address] Moncada he ordered a diagnostic mammogram as it has more images. This is because patient had an abnormal mammogram last year that required a biopsy. Left message for patient to call office to advise of this. * Telephone Encounter - Anisha Moreno CMA - 03/09/2025 11:34 AM CDT Patient left a voicemail requesting a callback to explain why a diagnostic mammogram has been ordered for her. documented in this encounter Plan of Treatment Not on file documented as of this encounter Visit Diagnoses Not on filedocumented in this encounter Care Teams Insurance Consultant Relationship Specialty Start Date End Date Arnulfo Dang DO [address] [facility] [address] [place] [address] PCP - General Family Medicine 09/11/22 Serafin Miramontes MD [address] [facility] [address] [place] [address] Consulting Physician Vascular Surgery 05/25/18 Naveed Moncada DO [address] [place] [address] MEDICAL ONCOLOGY, [facility] [address] [place] [address] Medical Oncologist/Wheel Grinder Hematology and Oncology 09/23/23 documented as of this encounter
== END 2025-03-17 12:56 | disposition home or self-care (01) ==
PROVIDERS: PCP Family Medicine; Visit Provider Internal Medicine Medical Oncology
DX: R92.8 Other abnormal and inconclusive findings on diagnostic imaging of breast (principal); D24.1 Benign neoplasm of right breast; R92.1 Mammographic calcification found on diagnostic imaging of breast; C50.412 Malignant neoplasm of upper-outer quadrant of left female breast; Z17.0 Estrogen receptor positive status [ER+]
CPT/HCPCS: 77062; 77066; G0279

== ENCOUNTER 2025-06-13 11:10 | Outpatient (CLI) | payer MEDICARE, SELFPAY ==
[2025-06-13 13:05] LABS: Hematocrit 40.6 % (37.0-47.0); Hemoglobin 13.3 g/dL (12.0-15.0); Immature Granulocyte Percent A 0.2 % (0-0.5); Lymphocytes Absolute Auto 1.72 K/mm3 (0.9-3.2); Mean Corpuscular HGB Conc 32.8 g/dl (32-36); Mean Corpuscular Hemoglobin 28.1 pg (26-34); Mean Corpuscular Volume 85.7 fl (80-100); Nucleated Red Blood Cells Absolute Auto 0.000 K/mm3 (0.0-0.012); Nucleated Red Blood Cells Perc 0.0 % (0.0-0.2); Platelet Count Result 358 k/mm3 (150-375); Red Blood Count 4.74 M/mm3 (4.2-5.4); White Blood Count 8.4 K/mm3 (4.5-10.0)
[2025-06-13 14:17] LABS: Thyroid Stimulating Hormone Reflex 1.010 uIU/mL (0.465-4.68)
[2025-06-13 14:18] LABS: Alanine Aminotransferase 17 U/L (6-35); Albumin Level 4.0 g/dL (3.5-5.1); Alkaline Phosphatase 91 U/L (38-126); Anion Gap 7 mmol/L (4-12); Aspartate Amino Transferase 41 U/L (14-36); Bilirubin,Total 0.3 mg/dL (0.2-1.3); Blood Urea Nitrogen 22 mg/dL (7-17); Calcium 10.4 mg/dL (8.4-10.2); Carbon Dioxide 23 mmol/L (22-30); Chloride 101 mmol/L (98-107); Cholesterol 212 mg/dL (0-200); Estimated Glomerular Filt Rate 47; Glucose 129 mg/dL (65-110); HDL Direct 40 mg/dL; Potassium 5.0 mmol/L (3.4-5.0); Sodium 131 mmol/L (137-145); Total Protein 7.4 g/dL (6.3-8.2); Triglycerides 78 mg/dL (<150)
[2025-06-13 15:09] LABS: Hemoglobin A1C 6.9 % (<5.7)
[2025-06-13 15:12] LABS: Vitamin B12 817.0 pg/mL (239-931)
[2025-06-13 15:22] LABS: MALB Creatinine Ratio < 15.6 mg/g (0-30)
== END 2025-06-13 11:11 | disposition home or self-care (01) ==
PROVIDERS: PCP Family Medicine; Visit Provider Family Medicine
DX: E78.49 Other hyperlipidemia (principal); I10 Essential (primary) hypertension; E11.9 Type 2 diabetes mellitus without complications; E53.8 Deficiency of other specified B group vitamins; E55.9 Vitamin D deficiency, unspecified; E78.5 Hyperlipidemia, unspecified
CPT/HCPCS: 36415; 80053; 80061; 82043; 82306; 82607; 83036; 84443; 85025

== ENCOUNTER 2025-06-13 11:44 | Outpatient (CLI) | payer MEDICARE, SELFPAY ==
--- NOTE | ~2025-06-13 | XR_ITS ---
EXAMINATION: SACRUM/COCCYX DATE: 06/13/2025 12:03 INDICATION: Tail bone pain and low back pain after fall TECHNIQUE: Three views sacrum/coccyx FINDINGS: No prior studies for comparison. There is no displaced fracture of the sacrum. The coccyx demonstrates overall normal morphology with out acute angulation.There are bilateral symmetric degenerative changes of the sacroiliac joints. IMPRESSION: 1. No acute displaced osseous abnormality of the sacrum. Suspicion for occult or nondisplaced sacral fracture can either be evaluated with CT or MRI. 2. Grossly normal morphology to the coccyx without acute angulation. However, due to the wide range of normal variation of the coccyx, acute injury would be best evaluated by clinical examination and patient's symptoms. Reviewed, dictated and finalized at location A.
== END 2025-06-13 11:45 | disposition home or self-care (01) ==
LOC: GOSHIMG 11:45
PROVIDERS: PCP Family Medicine; Visit Provider Family Medicine
DX: M53.3 Sacrococcygeal disorders, not elsewhere classified (principal)
CPT/HCPCS: 72220

== ENCOUNTER 2025-07-13 15:43 | Outpatient (CLI) | payer MEDICARE, SELFPAY ==
[2025-07-13 16:49] LABS: Alanine Aminotransferase 18 U/L (6-35); Albumin Level 4.1 g/dL (3.5-5.1); Alkaline Phosphatase 73 U/L (38-126); Anion Gap 9 mmol/L (4-12); Aspartate Amino Transferase 32 U/L (14-36); Bilirubin,Total 0.3 mg/dL (0.2-1.3); Blood Urea Nitrogen 16 mg/dL (7-17); Calcium 10.3 mg/dL (8.4-10.2); Carbon Dioxide 26 mmol/L (22-30); Chloride 99 mmol/L (98-107); Estimated Glomerular Filt Rate 57; Glucose 208 mg/dL (65-110); Potassium 4.7 mmol/L (3.4-5.0); Sodium 134 mmol/L (137-145); Total Protein 7.2 g/dL (6.3-8.2)
== END 2025-07-13 15:44 | disposition home or self-care (01) ==
LOC: ANHGOSHLAB 15:44
PROVIDERS: PCP Family Medicine; Visit Provider Nurse Practitioner Family
DX: E87.1 Hypo-osmolality and hyponatremia (principal); R79.89 Other specified abnormal findings of blood chemistry; R74.01 Elevation of levels of liver transaminase levels
CPT/HCPCS: 36415; 80053